=== PATIENT | female | born 1950 | race Caucasian/White ===

== ENCOUNTER → 2016-10-25 | Outpatient (CLI) | payer BC ==
[~2016-10-25] MED LIST: ALPR-411 PO; AMLO10TA2 PO; DOXA4TAB2 PO; ERGO1CAP35 PO; HYDR-4380 PO; LEVO25TA PO; METO1TAB69 PO
== END | disposition home or self-care (01) ==
LOC: C.RDSM 12:38
PROVIDERS: ATTEND Orthopaedic Surgery Sports Medicine
DX: M17.11 Unilateral primary osteoarthritis, right knee (principal)

== ENCOUNTER → 2017-02-15 | Outpatient (CLI) | payer BC ==
[~2017-02-15] MED LIST changes: +METO100T44 PO; -METO1TAB69 PO
== END | disposition home or self-care (01) ==
LOC: C.RDSM 13:04
PROVIDERS: ATTEND Orthopaedic Surgery Sports Medicine
DX: M25.562 Pain in left knee (principal)

== ENCOUNTER → 2017-11-08 | Outpatient (CLI) | payer BC | END | disposition home or self-care (01) | LOC: C.RDSM 08:08 | PROVIDERS: ATTEND Orthopaedic Surgery Sports Medicine | DX: M17.0 Bilateral primary osteoarthritis of knee (principal) ==